=== PATIENT | female | born 1935 | race Two or more races ===

== ENCOUNTER 2024-09-20 13:12 | Emergency (ER) | payer OTHER ==
[~2024-09-20] VITALS: Ht 167.6 cm; Wt 40.4 kg
[2024-09-20] MEDS ORDERED: MIRTAZAPINE45 M1 PO (14:18)
[2024-09-20] MEDS ORDERED: OLANZAPINE5 MG PO (14:18)
[2024-09-20] MEDS ORDERED: ARICEPT10 MG (14:19)
[2024-09-20] MEDS ORDERED: MIRTAZAPINE15 M1 PO (14:20)
[2024-09-20] MEDS ORDERED: SIMVASTATIN40 MG PO (14:20)
[2024-09-20 15:03] LABS: HEMATOCRIT 41.1 % (36.0-45.00); HEMOGLOBIN 13.8 g/dL (12.0-15.00); MEAN CORPUSCULAR HEMOGLOBIN 32.6 pg (27.00-32.0); MEAN CORPUSCULAR HGB CONC 33.6 g/dl (32.0-36.0); PLATELET COUNT 208 K/uL (150-450); RED BLOOD COUNT 4.24 M/uL (4.00-6.00); RED CELL DISTRIBUTION WIDTH 13.7 % (11.5-14.5)
[2024-09-20 15:24] LABS: BILIRUBIN TOTAL 0.25 mg/dL (0.3-1.2); CALCIUM 9.4 mg/dL (8.5-10.1); CREATININE SERUM 0.59 mg/dL (0.55-1.02); GFR 96.19; GLOBULINA 4.4 G/DL (2.4-3.5); POTASSIUM 3.71 mEq/L (3.5-5.1); TOTAL PROTEIN 8.4 gm/dL (6.4-8.2)
== END 2024-09-20 16:33 | disposition home or self-care (01) ==
LOC: ER 13:12
PROVIDERS: General Practice
DX: R53.81 Other malaise (principal); R25.1 Tremor, unspecified